=== PATIENT | female | born 1980 | race Caucasian/White ===

== ENCOUNTER 2022-10-03 12:07 | Emergency (ER) | payer OTHER ==
[~2022-10-03] VITALS: Ht 167.6 cm; Wt 65.8 kg
[2022-10-03] MEDS ORDERED: BISOPROLOL FUMAR5 MG PO (12:55)
[2022-10-03 13:09] LABS: HEMATOCRIT 35.7 % (37.0-47.0); MEAN CELL VOLUME 88.6 fl (81.0-99.0); MEAN CORPUSCULAR HGB 29.3 pg (27.0-31.0); MEAN CORPUSCULAR HGB CONC 33.1 g/dl (33.0-37.0); MEAN PLATELET VOLUME 8.6 fl (9.6-12.3); PLATELET COUNT AUTOMATED 316 10*3/uL (130-400); RED BLOOD COUNT 4.03 10*6/uL (4.10-5.10); RED CELL DISTRI WIDTH 12.6 % (0-14.5); WHITE BLOOD COUNT 15.5 10*3/uL (4.8-10.8)
[2022-10-03 13:34] LABS: MANUAL DIFF REFLEX YES
[2022-10-03 13:36] LABS: ATYPICAL LYMPHS 2 % (0-0); OVALOCYTES FEW; PLATELET SUFFICIENCY NORMAL (NORMAL); POLYCHROMASIA SLIGHT; TOTAL CELLS COUNTED 100 #CELLS; TOXIC GRANULATION SLIGHT; VACUOLATION OF NEUTROPHILS SLIGHT
[2022-10-03 13:43] LABS: ALKALINE PHOSPHATASE 80 U/L (45-117); BUN 7 mg/dl (7-24); CHLORIDE 108 mmol/L (98-107); CREATININE 0.72 mg/dL (0.55-1.02); POTASSIUM 3.3 mmol/L (3.5-5.1); SGOT/AST 32 IU/L (3-35); SGPT/ALT 69 U/L (12-78); SODIUM 142 mmol/L (136-145); TOTAL PROTEIN 7.4 gm/dL (6.4-8.2)
[2022-10-03] MEDS ORDERED: PREDNISONE20 M1 PO (14:22)
[2022-10-03] MEDS ORDERED: AMOX-CLAV 875-1 EACH PO (14:22)
== END 2022-10-03 14:25 | disposition home or self-care (01) ==
LOC: ED 12:07
PROVIDERS: Physician Assistant
DX: J32.9 Chronic sinusitis, unspecified (principal); J40 Bronchitis, not specified as acute or chronic; Z79.899 Other long term (current) drug therapy